=== PATIENT | male | born 1975 | race Caucasian/White ===

== ENCOUNTER 2016-04-19 10:46 | Emergency (ER) | payer BC ==
[2016-04-19] MEDS ORDERED: ADENOSINE 6 MG/2 ML VIAL ONE (10:50)
== END 2016-04-19 12:55 | disposition home or self-care (01) ==
LOC: ER 10:46
DX: R00.2 Palpitations (principal); I47.1 Supraventricular tachycardia; I10 Essential (primary) hypertension; F17.200 Nicotine dependence, unspecified, uncomplicated
CPT/HCPCS: 36415; 80047; 84484; 85014; 93005; 96374